=== PATIENT | male | born 1965 | race Two or more races ===

== ENCOUNTER 2017-10-27 08:59 | Emergency (ER) | payer OTHER ==
[~2017-10-27] VITALS: Ht 185.4 cm; Wt 88.6 kg
[2017-10-27] MEDS ORDERED: LIDOcaine 1.5% w/epinephrine 1:200,000 5ml ampul IJ ONE (09:10)
[2017-10-27] MEDS ORDERED: TETanus/Pertussis (Acell)/Diphther VAC/PF (Tdap-Adult) 0.5ml syringe IM ONE (09:10)
[2017-10-27 10:28] VITALS: BP 102/78
== END 2017-10-27 10:33 | disposition home or self-care (01) ==
LOC: ER 08:59
DX: S51.812A Laceration without foreign body of left forearm, initial encounter (principal); Z88.8 Allergy status to other drugs, medicaments and biological substances; W01.110A Fall on same level from slipping, tripping and stumbling with subsequent striking against sharp glass, initial encounter; Y93.89 Activity, other specified; Y92.89 Other specified places as the place of occurrence of the external cause; Y99.8 Other external cause status
CPT/HCPCS: 12032; 99284; A6222; A6223; A6449; J3490